=== PATIENT | female | born 1935 | race Caucasian/White ===

== ENCOUNTER 2017-12-21 10:59 | Inpatient (IN) | payer OTHER ==
[~2017-12-21] VITALS: Ht 157.5 cm; Wt 68.5 kg
--- NOTE | ~2017-12-21 | HC ---
[facility] [place] [address] CONSULTATION Name: MOHINDERVINCE E Room #: 418-P [facility] IN ..#: [id number] Admission: 12/21/17 Attend Phys: Rohit Jansen DO Discharge: 12/22/17 Date of : 33 Report #: [id number] THIS REPORT FOR: //name// CC: Ki Jansen DATE OF SERVICE: 12/22/2017 INDICATION: Epigastric pain. HISTORY OF PRESENT ILLNESS: This is a pleasant 82-year-old female presenting with epigastric pain for the past several days. She describes a discomfort in the epigastric area, that radiates all over the chest, comes and goes. It has been ongoing for the past 4 days, lasting up to 10-15 minutes in duration. It is not initiated with exertion. It is not associated with any shortness of breath, nausea or diaphoresis. There are no alleviating or aggravating factors. She does have a history of reflux disease. There is no history of fever, PND or orthopnea. PAST MEDICAL HISTORY: Remote history of stenting in 2001, diabetes mellitus, hypertension, hypercholesterolemia, gastroesophageal reflux disease, hypothyroidism. ALLERGIES: PENICILLINS AND SULFA. MEDICATIONS: Include glipizide, metformin, diltiazem 300, Pravachol 40 mg daily, niacin, aspirin, folic acid. SOCIAL HISTORY: Negative for tobacco use. FAMILY HISTORY: Negative for premature coronary artery disease. REVIEW OF SYSTEMS: A full 10-point review of systems is performed. Only the pertinent positives and negatives are described in the HPI. PHYSICAL EXAMINATION: VITAL SIGNS: Blood pressure is 140/70, heart rate is 75 beats per minute. GENERAL APPEARANCE: An elderly appearing female, in no acute respiratory distress. HEAD AND EYES: Normocephalic. Sclerae are anicteric. ENT: Oral mucosa moist. NECK: Supple. LUNGS: Clear to auscultation. CARDIAC: Regular rate and rhythm, S1, S2 positive. ABDOMEN: Soft, nontender. EXTREMITIES: No cyanosis, no edema. [facility] [address] [place] [address] CONSULTATION Name: MOHINDERVINCE E Room #: 418-P [facility] IN ..#: [id number] Admission: 12/21/17 Attend Phys: oRhit Jansen DO Discharge: 12/22/17 Date of : 33 Report #: [id number] NEUROLOGIC: Alert and oriented x 3 DIAGNOSTIC STUDIES: ECG reveals sinus rhythm, LVH with repolarization abnormality. LABORATORY VALUES: Serial troponins are negative. White count is 8.9, hemoglobin 9.3, sodium is 136, creatinine is 1.4. ASSESSMENT AND PLAN: 1. Epigastric pain, more likely related to a gastrointestinal source. Would proceed with a gastrointestinal evaluation. 2. Coronary artery disease, prior history of stent insertion. Stable at this time. The ECG is unremarkable and troponin levels are negative. Continue with medications. 3. Hypertension, continue with blood pressure medications. 4. Hypercholesterolemia, continue with statin therapy. 5. Diabetes mellitus, continue with hyperglycemic regimen. <ELECTRONICALLY SIGNED> By: Shamar San MD 12/23/17 0825 0824 1220 Shamar San MD /nt
--- NOTE | ~2017-12-21 | EKG ---
[place] [address] [facility] [employer] [address] ELECTROCARDIOGRAM REPORT Name: VINCE VINES Room #: 170-3 ADM IN M.R.#: [id number] Admission: 12/21/17 Attend Phys: Rohit Jansen DO Discharge: Date of : 33 Report #: [id number] THIS REPORT FOR: //name// [facility] ED Test Date: 2017-12-21 Test Time: 11:03:40 Pat Name: VINCE VINES Department: Room: 170 Gender: F [employer] Systems Repairer: XOCHITL : 1935 Requested By: Mayelin Rivera Order Number: [id number] MD: Regan Kaye Measurements Intervals [place] Rate: 74 P: 12 MI: 190 QRS: 11 QRSD: 93 T: 147 QT: 371 QTc: 412 Interpretive Statements Sinus rhythm Abnormal R-wave progression, early transition LVH with secondary repolarization abnormality Electronically Signed On 12-21-2017 14:05:11 CDT by Regan Kaye [email or web address] <ELECTRONICALLY SIGNED> By: Regan Kaye MD 12/21/17 1405 1103 02 Regan Kaye MD /WOLF
[~2017-12-21 10:59] MED LIST: ANTIVERT25 MG PO; ASA5UEC PO; BENADRYL25 MG PO; CALCIUM 600 +1 EAC1 PO; CARDURA4 MG PO; CENTRUM CHEWAB1 EACH PO; CYMBALTA30 MG PO; DILTIAZEM 24HR300 M1 PO; FLEXERIL PO; GLIPIZIDE XL10 MG PO; GLUMETZA500 PO; IBUPROFEN 600600 M1 PO; LEVOTHYROXIN0.025 MG PO; MAGNESIUM250 M1 PO; MEDROLDOSEPACK PO; NORCO 5-325 TA1 EACH PO; PEPCID20 MG PO; PRAVASTATIN SOD40 MG PO; SLO-NIACIN500 MG PO; ZOFRAN ODT4 MG PO; ZYRTEC 10 MG TA10 M1 PO
[2017-12-21 11:00] VITALS: BP 147/54
[2017-12-21 11:23] LABS: BASOPHILS 0.7 % (0.0-2.0); EOSINOPHILS 1.5 % (0.0-3.0); HEMATOCRIT 27.8 % (37.0-47.0); HEMOGLOBIN 9.3 gm/dL (12.0-15.0); LYMPHOCYTES 19.3 % (24.0-44.0); MCH 28.8 pg (26.0-34.0); MCHC 33.5 g/dL (28.0-37.0); MCV 86.2 fL (80.0-100.0); MONOCYTES 11.3 % (1.0-8.0); PLATELET COUNT 242 thou/uL (150-400); POLYS 67.2 % (36.0-66.0); RBC 3.22 mil/uL (4.20-5.00); RDW 14.4 % (10.5-14.5); WBC 8.9 thou/uL (4.0-11.0)
[2017-12-21 11:43] LABS: ANION GAP 14 mmol/L (7-16); BUN 25 mg/dL (7-18); CALCIUM 9.7 mg/dL (8.5-10.1); CHLORIDE 101 mmol/L (98-107); CO2 21 mmol/L (21-32); CREATININE 1.4 mg/dL (0.6-1.0); GLUCOSE 179 mg/dL (74-106); POTASSIUM 4.3 mmol/L (3.5-5.1); SODIUM 136 mmol/L (136-145)
[2017-12-21 11:49] LABS: DIRECT BILIRUBIN < 0.1 mg/dL (<0.1-0.3); LIPASE 204 U/L (73-393); SGOT 26 U/L (15-37); SGPT 32 U/L (30-65); TOTAL BILIRUBIN 0.2 mg/dL (<0.1-1.0); TOTAL PROTEIN 8.3 g/dL (6.4-8.2); TROPONIN-I < 0.04 ng/mL (<0.06)
[2017-12-21 13:02] LABS: URINE BILIRUBIN NEGATIVE (Negative); URINE BLOOD NEGATIVE (Negative); URINE CLARITY CLEAR; URINE COLOR YELLOW; URINE GLUCOSE-RANDOM* NEGATIVE (Negative); URINE KETONES NEGATIVE (Negative); URINE LEUKOCYTES 1+ (Negative); URINE NITRITE NEGATIVE (Negative); URINE PROTEIN (DIPSTICK) NEGATIVE (Negative); URINE SPECIFIC GRAVITY <= 1.005 (1.005-1.035); URINE UROBILINOGEN 0.2 E.U./dl (0.2-1.0)
[2017-12-21 13:14] LABS: BACTERIA None Seen /HPF (None Seen); CASTS None Seen /LPF (None Seen); CRYSTALS None Seen /LPF (None Seen); SQUAMOUS 4-10 Moderate /LPF (0-3); URINE RBC None Seen /HPF (0-2); URINE WBC 6-15 Few /HPF (0-5)
[2017-12-21 13:15] LABS: WBC CLUMPS Occasional (None Seen)
[2017-12-21 14:27] LABS: TSH 2.904 uIU/mL (0.358-3.740)
[2017-12-21 16:43] VITALS: BP 145/76
[2017-12-21 17:31] VITALS: BP 154/64
[2017-12-21 20:47] VITALS: BP 152/66
[2017-12-22 00:24] LABS: HEMATOCRIT 24.3 % (37.0-47.0); HEMOGLOBIN 8.1 gm/dL (12.0-15.0); MCHC 33.5 g/dL (28.0-37.0); MCV 86.7 fL (80.0-100.0); RBC 2.81 mil/uL (4.20-5.00); WBC 7.8 thou/uL (4.0-11.0)
[2017-12-22 00:43] LABS: ANION GAP 8 mmol/L (7-16); BUN 20 mg/dL (7-18); CALCIUM 8.7 mg/dL (8.5-10.1); CHLORIDE 106 mmol/L (98-107); CHOLESTEROL 146 mg/dL (<200); CO2 26 mmol/L (21-32); CREATININE 1.3 mg/dL (0.6-1.0); GLUCOSE 100 mg/dL (74-106); HDL CHOLESTEROL 56 mg/dL (>40); LDL CHOLESTEROL 53 mg/dL (<100); POTASSIUM 4.2 mmol/L (3.5-5.1); SODIUM 140 mmol/L (136-145); TC:HDL 2.6 Ratio (Not establshd); TRIGLYCERIDE 188 mg/dL (<150); TROPONIN-I < 0.04 ng/mL (<0.06); VLDL 38 mg/dL (<40)
[2017-12-22 00:47] LABS: SERUM ASSESSMENT Clear
[2017-12-22 04:00] VITALS: BP 134/65
[2017-12-22] MEDS ORDERED: OMEPRAZOLE 20 M20 M1 PO (04:20)
[2017-12-22] MEDS ORDERED: VITAMIN D1000 UNI1 PO (04:21)
[2017-12-22] MEDS ORDERED: CYMBALTA30 MG PO (05:20)
[2017-12-22 07:10] VITALS: BP 144/64
[2017-12-22 11:23] VITALS: BP 144/64
[2017-12-23 01:06] LABS: GLYCOHEMOGLOBIN (HGB A1C) 7.1 % (4.8-5.6)
== END 2017-12-22 13:24 | disposition home or self-care (01) | DRG 303 ==
LOC: ER 10:59 → EROBS 13:06 → 4E 16:24
PROVIDERS: Emergency Medicine; Nurse Practitioner
DX: I25.10 Atherosclerotic heart disease of native coronary artery without angina pectoris (principal); N17.9 Acute kidney failure, unspecified; N39.0 Urinary tract infection, site not specified; I10 Essential (primary) hypertension; E78.00 Pure hypercholesterolemia, unspecified; K21.9 Gastro-esophageal reflux disease without esophagitis; E03.9 Hypothyroidism, unspecified; E11.65 Type 2 diabetes mellitus with hyperglycemia; K59.00 Constipation, unspecified; Z90.710 Acquired absence of both cervix and uterus; Z79.899 Other long term (current) drug therapy; Z88.0 Allergy status to penicillin; Z88.2 Allergy status to sulfonamides; Z98.42 Cataract extraction status, left eye; Z98.41 Cataract extraction status, right eye; Z87.891 Personal history of nicotine dependence; Z95.5 Presence of coronary angioplasty implant and graft; Z90.49 Acquired absence of other specified parts of digestive tract
CPT/HCPCS: 10183

== ENCOUNTER → 2018-01-21 | Outpatient (CLI) | payer OTHER ==
[~2018-01-21] MED LIST changes: +OMEPRAZOLE 20 M20 M1 PO; +VITAMIN D1000 UNI1 PO
--- NOTE | ~2018-01-21 | 2DMMODE ---
[facility] [employer] [place] [address] 2 D/M-MODE ECHOCARDIOGRAM Name: VINCE VINES Room #: REG [facility]#: [id number] Admission: 01/21/18 Attend Phys: Shamar San MD Discharge: Date of : 33 Date of Service: 01/21/18 1429 Report #: [id number] THIS REPORT FOR: //name// APPROVED REPORT Study performed: 01/21/2018 13:11:40 EXAM: Comprehensive 2D, Doppler, and color-flow Echocardiogram Patient Location: Echo lab Status: routine BSA: 1.71 BP: 149/65 mmHg Other Information Study Quality: Adequate Indications Chest Pain 2D Dimensions RVDd: 26.23 mm LVEF(%): 61.33 (>50%) IVSd: 9.58 (7-11mm) LVOT Diam: 20.18 (18-24mm) LVDd: 39.21 mm PWd: 9.84 (7-11mm) Ascending Ao: 30.04 (22-36mm) LVDs: 26.51 (25-40mm) Aortic Root: 27.44 mm IVC: 16.00 mm Hoyos's LVEF: 61.33 % Volumes Left Atrial Volume (Systole) Single Plane 4CH: 27.59 mL Single Plane 2CH: 46.75 mL LA ESV Index: 23.00 mL/m2 Aortic Valve AoV Peak Candido.: 2.68 m/s AO Peak Gr.: 28.70 mmHg LVOT Max P.58 mmHg AO Mean Gr.: 14.20 mmHg LVOT Mean P.66 mmHg AO V2 Mean: 1.71 m/s LVOT Max V: 1.38 m/s AO V2 VTI: 52.71 cm LVOT Mean V: 0.85 m/s CT (VTI): 1.86 cm2 LVOT V1 VTI: 30.[address] Vmax: 1.64 cm2 SV (LVOT): 98.24 mL [facility] [address] [place] [address] 2 D/M-MODE ECHOCARDIOGRAM Name: FRANCY VINESJULIO Melchor Room #: REG [facility]#: [id number] Admission: 01/21/18 Attend Phys: Shamar Sna MD Discharge: Date of : 33 Date of Service: 01/21/18 1429 Report #: [id number] Mitral Valve E/A Ratio: 0.7 MV Decel. Time: 364.95 ms MV E Max Candido.: 0.63 m/s MV A Candido.: 0.86 m/s MV PHT: 105.84 ms IVRT: 96.89 ms Pulmonary Valve PV Peak Candido.: 1.52 m/s PV Peak Gr.: 9.19 mmHg Pulmonary Vein P Vein S: 0.57 m/s P Vein A: 0.29 m/s P Vein D: 0.38 m/s P Vein A Dur.: 131.5 msec P Vein S/D Ratio: 1.50 Tricuspid Valve RAP Estimate: 5.00 mmHg Left Ventricle The left ventricle is normal size. There is normal left ventricular wall thickness. The left ventricular systolic function is normal. The left ventricular ejection fraction is within the normal range. LVEF is 60%. Mild diastolic dysfunction is present (impaired relaxation pattern). Right Ventricle The right ventricle is normal size. The right ventricular systolic function is normal. Atria The left atrium size is normal. The right atrium size is normal. Aortic Valve Mild aortic valve sclerosis. No aortic regurgitation is present. There is mild valvular aortic stenosis. Calculated aortic valve area is 1.9 cm2 with maximum pressure gradient of 29 mmHg and mean pressure gradient of 14 mmHg. Mitral Valve The mitral valve is normal in structure. Trace mitral regurgitation. No evidence of mitral valve stenosis. Tricuspid Valve The tricuspid valve is normal in structure. Trace tricuspid [address] [address] 2 D/M-MODE ECHOCARDIOGRAM Name: MOHINDERVINCE E Room #: REG [facility]#: [id number] Admission: 01/21/18 Attend Phys: Shamar San MD Discharge: Date of : 33 Date of Service: 01/21/18 1429 Report #: [id number] regurgitation. Unable to assess PA pressure. Pulmonic Valve Pulmonic valve is not well visualized. There is no pulmonic valvular regurgitation noted. Great Vessels The aortic root is normal in size. IVC is normal in size and collapses >50% with inspiration. Pericardium There is no pericardial effusion. <Conclusion> The left ventricle is normal size. There is normal left ventricular wall thickness. The left ventricular systolic function is normal. Mild diastolic dysfunction is present (impaired relaxation pattern). The right ventricle is normal size. The left atrium size is normal. There is mild valvular aortic stenosis. Trace mitral regurgitation. Trace tricuspid regurgitation. <ELECTRONICALLY SIGNED> By: Shamar San MD 01/21/18 1429 1429 1429 Shamar San MD /INF
== END ==
LOC: CV 11:24
DX: I35.0 Nonrheumatic aortic (valve) stenosis (principal); I25.10 Atherosclerotic heart disease of native coronary artery without angina pectoris

== ENCOUNTER → 2018-01-31 | Outpatient (CLI) | payer OTHER | LOC: NUC 07:43 | DX: I25.10 Atherosclerotic heart disease of native coronary artery without angina pectoris (principal); I10 Essential (primary) hypertension; E11.9 Type 2 diabetes mellitus without complications; Z87.891 Personal history of nicotine dependence ==